=== PATIENT | male | born 1990 | race Hispanic/Latino ===

== ENCOUNTER 2024-10-02 13:21 | Emergency (ER) | payer SELFPAY ==
[2024-10-02 13:39] VITALS: BP 127/70; PULSE 73; RESP 15; TEMP 37.9; O2SAT 100
--- NOTE | 2024-10-02 14:49 | ED.SKABFB ---
HPI - Skin/Abscess/Foreign Bdy General Chief complaint: Skin/Abscess/Foreign Body Stated complaint: lump on head Time Seen by Provider: 10/02/24 14:27 Source: patient Mode of arrival: ambulatory Limitations: no limitations and language barrier History of Present Illness HPI narrative: Patient is a 34-year-old male who presents the ED with report of an abscess to his neck. Patient is primarily Fijian-speaking. [employer] cellular [employer] cutter was utilized for assistance with translation. Patient reports he has had the lesion for the past 6 days. States it has intermittently been draining. Reports pain associated with the lesion. Reports some chills and intermittent fevers. Denies history of similar symptoms. Denies history of diabetes. Related Data Allergies Allergy/AdvReac Type Severity Reaction Status Date / Time No Known Allergies Allergy Verified 10/02/24 13:48 Review of Systems Review of Systems: All systems reviewed & are unremarkable except as noted in HPI. All systems reviewed & are unremarkable except as noted in HPI and below Exam Narrative: GENERAL: Well appearing, obese with BMI of 31.5, non-toxic, in no acute distress. HEAD: Normocephalic, atraumatic. Localized 2x2cm carbuncle appearing lesion to posterior lower scalp, central fluctuance with scattered pustular areas with scant drainage, focal TTP, slight erythema and induration surrounding lesion. No midline cervical spinal tenderness RESPIRATORY: Airway patent, respirations nonlabored. CARDIOVASCULAR: Regular rate and rhythm MUSCULOSKELETAL: Moves all extremities. No gross deformities. SKIN: Warm, dry, normal color. NEURO: A&O X3. Speech clear. PSYCHIATRIC: Appropriate mood and affect. Normal interaction. Course Vital Signs Vital signs: Vital Signs Temperature 100.2 F H 10/02/24 13:39 Pulse Rate 73 10/02/24 13:39 Respiratory Rate 15 10/02/24 13:39 Blood Pressure 127/70 10/02/24 13:39 Pulse Oximetry 100 10/02/24 13:39 Oxygen Delivery Room Air 10/02/24 13:39 Temperature 100.2 F H 10/02/24 13:39 Pulse Rate 73 10/02/24 13:39 Respiratory Rate 15 10/02/24 13:39 Blood Pressure 127/70 10/02/24 13:39 Pulse Oximetry 100 10/02/24 13:39 Oxygen Delivery Room Air 04/01/25 13:39 Procedures Abscess I/D scalp: Date of Incision: 10/02/24 Time of Incision: 15:50 Sedation/analgesia: none Local Anesthetic: lidocaine 1% Amount of anesthesia used (mL): 5 Technique: incised with #11 blade and probed loculations Amount of fluid expressed (mL): 5 Irrigation: Yes Packing used?: none I&D Results: Pus and Blood Complications: other (none) MDM - Skin/Abscess/Foreign Bdy MDM Narrative Medical decision making narrative: Patient presented to ED with abscess to neck X 6 days. Patient borderline febrile upon arrival. Given Tylenol. Exam consistent with carbuncle. I&D performed in the ED. Patient tolerated procedure well. Wound cx obtained. Patient will be started on Bactrim. Given 1st dose in the ED. Advised patient to continue warm compresses, Tylenol/ibuprofen as needed for pain/fevers, recommended close follow-up with PCP for further evaluation. Given return precautions. He agrees with plan. Discharged in stable condition. Medical Records Attestation: I reviewed the patient's medical records. Discharge Plan Discharge Clinical Impression: Abscess or cellulitis of scalp Patient Disposition: Home, Self-Care Condition: Stable Instructions: Antibiotic Form, Cellulitis (ED), Folliculitis (ED), Abscess (ED) Additional Instructions: Take antibiotics as prescribed. Recommend frequent warm compresses to scalp. Continue Tylenol/ibuprofen as needed for pain and/or fevers. Follow-up with primary care doctor for further evaluation. Return to the ED if you experience worsening or severe symptoms, persistent fevers, severe pain, unable to keep down food or drink, or any other symptoms of concern. Patient Language: Fijian Prescriptions: New sulfamethoxazole-trimethoprim [Bactrim DS] 800-160 mg tablet 1 tablet PO Q12H 7 Days Qty: 14 0RF Follow-up/Referrals: Vikram Nayak MD [Physician] - (PRIMARY CARE) PHYSICIAN,HEAD COACH [Primary Care Provider] - Kristopehr Everett MD [Physician] - (PRIMARY CARE) Stand Alone Forms: Work/School Release IP Time of Disposition: 16:02
[2024-10-02] MEDS: SULFAMETHOXAZOLE/TRIMETHOPRIM 800/160 MG DS TABLET 1 TAB PO (14:50)
[2024-10-02] MEDS: ACETAMINOPHEN 500 MG TABLET 1000 MG PO (14:50)
[2024-10-02 16:25] VITALS: BP 121/60; PULSE 60; RESP 16; O2SAT 100
== END 2024-10-02 16:35 | disposition home or self-care (01) ==
LOC: ANHED 16:16
PROVIDERS: Emergency Provider Physician Assistant
DX: L02.811 Cutaneous abscess of head [any part, except face] (principal)
CPT/HCPCS: 10060; 87070; 87075; 87181; 87205; 99283; A9270; J2003